=== PATIENT | female | born 1950 | race Hispanic/Latino ===

== ENCOUNTER 2022-09-28 05:48 | Day surgery (SDC) | payer OTHER ==
[2022-09-26 10:20] LABS: BASOPHILS % (AUTO) 0.9 % (0.0-5.0); EOSINOPHILS % (AUTO) 1.8 % (0.0-8.0); HEMATOCRIT 44.9 % (36-48); LYMPHOCYTES % (AUTO) 27.9 % (21.0-51.0); MEAN CORPUSCULAR HEMOGLOBIN 26.6 pg (27.0-33.0); MEAN CORPUSCULAR HGB CONC 31.4 g/dL (32.0-36.0); MEAN CORPUSCULAR VOLUME 84.7 fL (79-99); NEUTROPHILS % (AUTO) 61.1 % (40.0-77.0); PLATELET COUNT (AUTO) 266 K/uL (130-400); RED CELL DISTRIBUTION WIDTH 13.9 % (11.0-15.5); WHITE BLOOD COUNT (AUTO) 6.5 K/uL (4.8-10.8)
[2022-09-26 10:35] VITALS: BP 144/69
[2022-09-26 10:38] LABS: CREATININE 0.6 mg/dL (0.5-1.5); POTASSIUM 4.5 mmol/L (3.5-5.1)
[2022-09-28] VITALS (15 sets, daily range): BP systolic 125–163; BP diastolic 56–71
[~2022-09-28] VITALS: Ht 152.4 cm; Wt 63.5 kg
[~2022-09-28 05:48] MED LIST: ASCO100031 PO; ENAL2.5T16 PO; HUMALO SQ; MAGNESIUM PO; METO25TA3 PO; PRAV40TA3 PO; VITAMIN D3 PO; ZINC220T4 PO
[2022-09-28] MEDS ORDERED: 0.9%NACL 1000ML 1,000 ML IV ONE (06:18)
[2022-09-28] MEDS ORDERED: CEFAZOLIN SODIUM 2 GM VIAL ONE (06:18)
[2022-09-28] MEDS ORDERED: PROPOFOL 10 MG/ML 20ML VIAL IV ONE (07:07)
[2022-09-28] MEDS ORDERED: FENTANYL CITRATE PF 50 MCG/1 ML 2ML VIAL ONE ×2 (07:07→07:51)
[2022-09-28] MEDS ORDERED: MIDAZOLAM HCL 1 MG/ML 2ML VIAL ONE (07:07)
[2022-09-28] MEDS ORDERED: ROCURONIUM 10MG/1ML SYR 10 MG/ML ML ONE (07:18)
[2022-09-28] MEDS ORDERED: ONDANSETRON 4MG INJ ONE (07:20)
[2022-09-28] MEDS ORDERED: BUPIVACAINE/PF 0.5% 30ML VIAL ONE (07:45)
[2022-09-28] MEDS ORDERED: EPHEDRINE SULFATE 50 MG/ML AMPULE ONE (07:51)
[2022-09-28] MEDS ORDERED: GLYCOPYRROLATE 1 MG/5 ML SYRINGE ONE (08:08)
[2022-09-28] MEDS ORDERED: NEOSTIGMINE 5MG/5ML SYR IV ONE (08:08)
== END 2022-09-28 10:05 | disposition home or self-care (01) ==
LOC: DAH 05:48
PROVIDERS: ATTEND Neurological Surgery
DX: G56.02 Carpal tunnel syndrome, left upper limb (principal); E11.9 Type 2 diabetes mellitus without complications; Z20.822 Contact with and (suspected) exposure to COVID-19; Z98.890 Other specified postprocedural states; Z79.899 Other long term (current) drug therapy; Z85.3 Personal history of malignant neoplasm of breast
CPT/HCPCS: 93005; 87426; 80048; 85025; 36415; 64721; 82948 ×3; A6260; A4663; J3010 ×2; J3490 ×3; J2710; J7030; J2250; J2704; J2405; J0690; A4215; A4223; A4222; A4221

== ENCOUNTER 2024-11-09 10:20 | Emergency (ER) | payer OTHER ==
[~2024-11-09] VITALS: Ht 152.4 cm; Wt 60.3 kg
[~2024-11-09 10:20] MED LIST changes: -ENAL2.5T16 PO; +ENAL2.5T71 PO; -PRAV40TA3 PO; +PRAV40TA62 PO
[2024-11-09] MEDS: 0.9% NACL 500ML IV.SOLN 500 ML IV ONE (11:11)
[2024-11-09 11:16] LABS: IMMATURE GRANULOCYTE ABSOLUTE 0.01 K/uL (0-1); NUCLEATED RED BLOOD CELLS 0.0 % (0.0-0.19); PLATELET COUNT (AUTO) 299 K/uL (130-400); RED BLOOD CELL COUNT(AUTO) 5.22 MIL/uL (4.00-5.50); RED CELL DISTRIBUTION WIDTH 14.6 % (11.0-15.5); WHITE BLOOD COUNT (AUTO) 3.8 K/uL (4.8-10.8)
[2024-11-09 11:26] LABS: CREATININE 1.0 mg/dL (0.5-1.0); GLOMERULAR FILTR. RATE CALC 60.0 mL/min (>90); GLUCOSE,RANDOM 117.0 mg/dL (70-105); SODIUM SERUM 141.0 mmol/L (136-145); UREA NITROGEN, BLOOD 22.0 mg/dL (7-18)
--- NOTE | 2024-11-09 11:27 | HMCIMG ---
EXAM: CR Chest, 1 View. CLINICAL HISTORY: cp COMPARISON: None provided. FINDINGS: LUNGS: There is no mass, infiltrate, or acute pulmonary abnormality. PLEURAL SPACES: No pleural effusion or pneumothorax. MEDIASTINUM: Cardiac size and mediastinal contours within normal limits. BONES: No acute osseous abnormality. IMPRESSION: No acute cardiopulmonary pathology is evident. /[place]
[2024-11-09 11:31] LABS: ASPARTATE AMINOTRANSFERASE 22.0 U/L (10-37); TOTAL PROTEIN, SERUM 7.7 g/dL (6.0-8.3)
[2024-11-09 12:10] LABS: INR 0.94 (0.85-1.15)
[2024-11-09 12:39] LABS: INFLUENZA TYPE A Negative For Type A (NEGATIVE); INFLUENZA TYPE B Negative For Type B (NEGATIVE)
[2024-11-09 12:44] LABS: COVID19 (SARS ANTIGEN RAPID) POSITIVE FOR SARS AG (NEGATIVE)
[2024-11-09 13:18] VITALS: BP 144/67; PULSE 101; RESP 17; TEMP 98.3; O2SAT 99
--- NOTE | 2024-11-09 13:20 | ERN ---
ED Note History of Present Illness Stated Complaint: TACHYCARDIA Chief Complaint: Rapid Heart Rate Time Seen by MD: 10:23 Dictation: 74-year-old female presenting to the emergency department with elevated heart rate no chest pain or shortness a breath but patient reports sinus type congestion for about a week on and off just finished Z-Steve. Allergies: Coded Allergies: No Known Drug Allergies (Unverified Allergy, Unknown, 09/26/22) Home Meds Reported Medications [Magnesium] No Conflict Check, 50 MG PO AM 09/26/22 Zinc Sulfate (Zinc) 50 Mg Tablet, 50 MG PO AM, TAB 09/26/22 [Vitamin D3] No Conflict Check, 2000 UNIT PO AM 09/26/22 Ascorbic Acid (Vitamin C) 1,000 Mg Tablet, 1000 MG PO AM, TAB 09/26/22 Metoprolol Succinate (Toprol Xl) 25 Mg Tab.er.24h, 25 MG PO HS, TAB 09/26/22 Pravastatin Sodium (Pravastatin Sodium) 40 Mg Tablet, 40 MG PO HS, TAB 09/26/22 Enalapril Maleate (Enalapril Maleate) 2.5 Mg Tablet, 2.5 MG PO HS, TAB 09/26/22 [Humalo] No Conflict Check, SQ CONTINOUS 09/26/22 Past Medical History Past Medical History: Cancer, Diabetes-Type II, High Cholesterol, Hypertension Additional Past Medical Hx: BREAST CA-DUCTAL Surgical History: Tonsillectomy Surgical History Other: RT BREAST Review of System Dictation Constitutional: Per HPI ENT: Negative for injury,pain or swelling Cardiovascular: Negative for chest pain positive for tachycardia Respiratory: Negative for shortness of breath, cough, and wheezing, Abdomen/GI: Negative for abdominal pain, nausea, vomiting, diarrhea, and constipation Back: Negative for injury and pain : Negative for injury, bleeding and discharge MS/Extremity: Negative for injury and deformity Skin: Negative for rash, and discoloration Neuro: Negative for headache, weakness, numbness, tingling, and seizure Psych: Negative for suicide ideation, homicidal ideation, and hallucinations Initial Vital Sign VS Vital Signs Date Time Temp Pulse Resp B/P (MAP) Pulse Ox O2 Delivery O2 Flow Rate FiO2 11/09/24 10:27 98.4 122 16 140/73 99 Room Air 0 11/09/24 11:52 21 Physical Exam Dictation General: awake, alert, NAD Head/Face: Normocephalic, atraumatic Eyes: PERRL, EOMI, vision at baseline ENT: oral cavity clear, TMs clear, no signs of infection Neck: Trachea midline, supple, no nuchal rigidity Cardiovascular: RRR, normal S1/S2, No MRGs, no JVD Respiratory: CTAB, no respiratory distress, No rales or wheezes Abdomen: Soft, non-tender, non-distended, normal bowel sounds, no guarding or rebound. Skin: Warm, dry, normal turgor, no rash MS/Extremity: Pulses equal, no cyanosis, neurovascular intact, FROM Neuro: COAx4, GCS 15, strength 5/5, CN 2-12 intact, normal cerebellar exam, normal gait, Psych: Normal behavior, mood, and affect normal Results (Laboratory/Radiology) Laboratory/Radiology Laboratory Tests Test 11/09/24 10:35 11/09/24 11:40 White Blood Count 3.8 K/uL (4.8-10.8) L Red Blood Count 5.22 MIL/uL (4.00-5.50) Hemoglobin 14.0 g/dL (12.0-16.0) Hematocrit 42.9 % (36-48) Mean Corpuscular Volume 82.2 fL (79-99) Mean Corpuscular Hemoglobin 26.8 pg (27.0-33.0) L Mean Corpuscular Hemoglobin Concent 32.6 g/dL (32.0-36.0) Red Cell Distribution Width 14.6 % (11.0-15.5) Platelet Count 299 K/uL (130-400) Mean Platelet Volume 10.5 fL (7.5-10.5) Immature Granulocyte % (Auto) 0.3 % (0-1) Neutrophils (%) (Auto) 43.7 % (40.0-77.0) Lymphocytes (%) (Auto) 34.1 % (21.0-51.0) Monocytes (%) (Auto) 15.4 % (3.0-13.0) H Eosinophils (%) (Auto) 4.9 % (0.0-8.0) Basophils (%) (Auto) 1.6 % (0.0-5.0) Neutrophils # (Auto) 1.7 K/uL (1.8-7.7) L Lymphocytes # (Auto) 1.3 K/uL (1.0-4.8) Monocytes # (Auto) 0.6 K/uL (0.1-1.0) Eosinophils # (Auto) 0.19 K/uL (0.00-0.70) Basophils # (Auto) 0.06 K/uL (0.00-0.20) Absolute Immature Granulocyte (auto 0.01 K/uL (0-1) Nucleated Red Blood Cells 0.0 % (0.0-0.19) White Cell Morphology Comment See comments Prothrombin Time 10.0 SEC (9.6-11.6) Prothromb Time International Ratio 0.94 (0.85-1.15) Activated Partial Thromboplast Time 29.1 SEC (26.3-35.5) Sodium Level 141 mmol/L (136-145) Potassium Level 4.0 mmol/L (3.5-5.1) Chloride Level 103 mmol/L (101-111) Carbon Dioxide Level 33 mmol/L (21-32) H Blood Urea Nitrogen 22 mg/dL (7-18) H Creatinine 1.0 mg/dL (0.5-1.0) Glomerular Filtration Rate Calc 60 mL/min (>90) Random Glucose 117 mg/dL (70-105) H Total Calcium 9.1 mg/dL (8.5-10.1) Total Bilirubin 0.3 mg/dL (0.2-1.0) Direct Bilirubin 0.1 mg/dL (0.0-0.3) Aspartate Amino Transf (AST/SGOT) 22 U/L (10-37) Alanine Aminotransferase (ALT/SGPT) 29 U/L (12-78) Alkaline Phosphatase 147 U/L (50-136) H Troponin I High Sensitivity 6 ng/L (4-50) B-Type Natriuretic Peptide < 5 pg/mL (0-100) Total Protein 7.7 g/dL (6.0-8.3) Albumin 3.5 g/dL (3.5-5.0) Influenza Type A Antigen Negative For Type A Influenza Type B Antigen Negative For Type B SARS-CoV-2 Antigen (Rapid) POSITIVE FOR SARS AG Labs Reviewed?: Yes EKG Comment: Heart rate 114, sinus tachycardia normal intervals no STEMI ED Course ED Course Orders Procedure Category Date Status Time B-Type Natriuretic LAB 11/09/24 Complete Peptide 10:23 12 Lead Ekg Tracing- EKG 11/09/24 Logged Technical 10:23 Basic Metabolic Panel LAB 11/09/24 Complete 10:23 Cbc With Differential LAB 11/09/24 Complete 10:23 Hepatic Function Panel LAB 11/09/24 Complete 10:23 Pt And Ptt LAB 11/09/24 Complete 10:23 Troponin I High LAB 11/09/24 Complete Sensitivity 10:23 Chest 1vw RAD 11/09/24 Resulted 10:23 0.9% Nacl 500ml PHA 11/09/24 Complete Iv.Soln (Ns 500ml 11:00 Covid19 (Sars Antigen LAB 11/09/24 Complete Rapid) 10:37 Influenza Type A & B, LAB 11/09/24 Complete Rapid 10:37 Current Medications Medications (Trade) Dose Ordered Sig/Michele Route PRN Reason Start Time Stop Time Status Last Admin Dose Admin Sodium Chloride 500 ml @ 0 mls/hr ONCE ONCE IV 11/09/24 11:00 11/09/24 11:01 DC 11/09/24 11:11 Vital Signs Date Time Temp Pulse Resp B/P (MAP) Pulse Ox O2 Delivery O2 Flow Rate FiO2 11/09/24 11:52 98.6 85 18 144/70 100 Room Air* 0 21 11/09/24 10:27 98.4 122 16 140/73 99 Room Air 0 Medical Decision Making MDM MDM: Differential diagnosis: Rationale: Tests considered and ordered secondary to shared decision making include: Previous outside records reviewed: Old ER visits. Risk of complication and/or morbidity or mortality of patient management: None Medications-Per medication reconciliation Need for hospitalization: Patient does not meet criteria for hospitalization. Need for emergency major/minor surgery: No There are no social concerns with this patient. Prescription drug management Prescriptions will include symptomatic care Patient's prior external medical records from other ER visits were reviewed by me as indicated. Prior testing and results from previous visits were reviewed. Prior tests were taken into account with medical decision making and resource utilization, independent historian/historians were used to obtain complete medical history. I independently interpreted the test that were performed, results were reviewed by me and considered findings on radiology if ordered. Medical management and examination interpretation discussions were had by me with other qualified healthcare professionals as indicated for the patient's care. 74-year-old female presenting to the emergency department with elevated heart ra te, viral symptoms negative workup borderline sinus tachycardia with COVID-19 no shortness a breath no signs of pulmonary emboli oxygen 100% on room air stable for discharge. DX & DISP Disposition: Discharge Departure Impression: Primary Impression: COVID-19 Additional Impression: URI (upper respiratory infection) Condition: Stable Referrals: CHRISTINE VILLATORO MD (PCP) FARAZ BURNHAM MD Nov 09, 2024 13:20
--- NOTE | 2024-11-09 14:38 | EKG ---
[facility] Test Date: 2024-11-09 Test Time: 10:26:28 Pat Name: JOHN SEGURA Department: ED Room: Gender: F Address Change Clerk: [id number] : [id number] Requested By: FARAZ BURNHAM Order Number: [id number] Reading MD: Dano Eden Measurements Intervals [place] Rate: 114 P: 70 LA: 147 QRS: 19 QRSD: 69 T: 60 QT: 329 QTc: 453 Interpretive Statements Sinus tachycardia Probable left atrial enlargement Compared to ECG 09/26/2022 10:03:16 Sinus rhythm no longer present Electronically Signed On 11-10-2024 00:07:28 CDT by Dano Eden Please click the below link to view image of tracing.
== END 2024-11-09 13:34 | disposition home or self-care (01) ==
LOC: EDH 10:20
DX: U07.1 COVID-19 (principal); J06.9 Acute upper respiratory infection, unspecified; E11.9 Type 2 diabetes mellitus without complications; E78.00 Pure hypercholesterolemia, unspecified; I10 Essential (primary) hypertension; Z85.3 Personal history of malignant neoplasm of breast; Z90.89 Acquired absence of other organs; Z79.899 Other long term (current) drug therapy
CPT/HCPCS: 36415; 71045; 80048; 80076; 83880; 84484; 85025; 85610; 85730; 87426; 87804; 93005; 99285